=== PATIENT | male | born 1980 | race African-American/Black ===

== ENCOUNTER 2018-02-03 17:24 | Emergency (ER) | payer OTHER ==
[~2018-02-03] VITALS: Ht 175.3 cm; Wt 77.1 kg
--- NOTE | 2018-02-03 18:22 | NUR ---
pt eloped, ambulated w/o diff/took all belongings.
== END 2018-02-03 18:26 | disposition left against medical advice (07) ==
LOC: ER 17:26
DX: Z53.21 Procedure and treatment not carried out due to patient leaving prior to being seen by health care provider (principal)
CPT/HCPCS: A4663

== ENCOUNTER 2018-08-21 23:53 | Emergency (ER) | payer OTHER ==
[~2018-08-21] VITALS: Ht 175.3 cm; Wt 79.8 kg
[2018-08-22] MEDS ORDERED: SIMETHICONE 80 MG TAB.CHEW ONE (00:43)
[2018-08-22] MEDS ORDERED: SIMETHICONE 80 MG TAB.CHEW PO ONE (00:45)
[2018-08-22 00:59] VITALS: BP 140/89
--- NOTE | 2018-08-22 01:00 | NUR ---
Patient given written and verbal discharge instructions. Patient verbalizes understanding of instructions. Patient is ambulatory with steady gait. Refuses offer of intermediate placement. Patient given list of available shelters in surrounding area.
== END 2018-08-22 01:01 | disposition home or self-care (01) ==
LOC: ER 08-22 00:03
DX: A08.4 Viral intestinal infection, unspecified (principal); F17.200 Nicotine dependence, unspecified, uncomplicated; Z59.0 Homelessness
CPT/HCPCS: A4663